=== PATIENT | male | born 1970 | race Caucasian/White ===

== ENCOUNTER → 2017-08-17 12:58 | Outpatient (CLI) | payer BC, SELFPAY ==
--- NOTE | 2017-08-17 13:02 | XR_ITS ---
XR shoulder RT min 2V HISTORY: ITS.REASON: right shoulder pain ORDERING PHYSICIAN: Percy Kwon MD PATIENT AGE: 46 years COMPARISON: FINDINGS: No fracture or dislocation. No lytic or blastic change. There is normal mineralization. The joint spaces are well-preserved. No significant degenerative/arthritic changes. No erosive changes evident. No subacromial stenosis IMPRESSION: Negative, no acute finding
--- NOTE | 2017-08-17 14:20 | XR_ITS ---
XR elbow RT 2V HISTORY: ITS.REASON: right elbow pain ORDERING PHYSICIAN: Percy Kwon MD PATIENT AGE: 46 years FINDINGS: BONY STRUCTURES: No fracture or dislocation. No lytic or blastic change. Normal mineralization. SOFT TISSUES: Unremarkable. No radio opaque foreign bodies. No displaced fat pad. JOINT SPACE: Well-preserved. No significant arthritic changes evident. IMPRESSION: Negative elbow.
== END ==
PROVIDERS: PCP Emergency Medicine; Visit Provider Orthopaedic Surgery
DX: M25.521 Pain in right elbow (principal)
CPT/HCPCS: 73030; 73070

== ENCOUNTER → 2017-08-28 15:48 | Outpatient (CLI) | payer BC, SELFPAY | PROVIDERS: Family Provider Family Medicine; PCP Emergency Medicine; Visit Provider Orthopaedic Surgery | DX: M77.11 Lateral epicondylitis, right elbow (principal); Z53.09 Procedure and treatment not carried out because of other contraindication ==

== ENCOUNTER → 2018-10-09 17:38 | Outpatient (CLI) | payer BC, SELFPAY ==
[2018-10-09 18:12] LABS: Basophils % 0.3 % (0.1-2.0); Eosinophils # 0.1 K/mm3 (0.0-0.4); Eosinophils % 1.5 % (0.1-12.0); Hematocrit 50.6 % (42.0-52.0); Hemoglobin 16.4 g/dL (14.1-18.0); Lymphocytes # 1.5 K/mm3 (0.7-4.5); Lymphocytes % 16.5 % (10-50); Mean Corpuscular HGB Conc 32.4 g/dL (31.8-35.4); Mean Corpuscular Volume 95.8 fl (80-94); Mean Platelet Volume 8.3 fl (7.4-10.4); Monocytes # 0.6 K/mm3 (0.1-1.0); Monocytes % 6.5 % (1.7-9.3); Neutrophils # 7.1 K/mm3 (1.8-7.8); Neutrophils % 75.2 % (37.0-80.0); Platelet Count 275 K/mm3 (142-424); Red Blood Count 5.29 M/mm3 (4.60-6.20); Red Cell Distribution Width 14.9 % (11.5-17.5); White Blood Count 9.4 K/mm3 (4.8-10.8)
[2018-10-09 18:44] LABS: Alanine Aminotransferase 153 U/L (12-78); Albumin Level 4.1 gm/dL (3.4-5.0); Albumin/Globulin Ratio 1.1 (1.1-1.8); Alkaline Phosphatase 135 U/L (46-116); Anion Gap 13.6 mEq/L (5-15); Aspartate Amino Transferase 75 U/L (15-37); Bilirubin,Total 0.6 mg/dL (0.2-1.0); Blood Urea Nitrogen 12 mg/dL (7-18); Calcium 8.9 mg/dL (8.5-10.1); Carbon Dioxide 29 mmol/L (21.0-32.0); Chloride 101 mmol/L (98-107); Creatinine,Serum 0.91 mg/dL (0.70-1.30); Erythrocyte Sedimentation Rate 5 mm/hr (0-15); Estimated Glomerular Filt Rate 90 ml/min (>60); GFR (African American) 109 ML/MIN (>60); Globulin 3.9 gm/dl (1.3-3.2); Glucose 84 mg/dL (74-106); Potassium 4.6 mmoL/L (3.5-5.1); Sodium 139 mmol/L (136-145); T4 (Thyroxine) 8.4 ug/dl (4.7-13.3); Thyroid Stimulating Hormone 2.35 uIU/ml (0.358-3.740)
[2018-10-12 07:12] LABS: Vitamin B12 485 pg/mL (232-1245)
[2018-10-14 18:08] LABS: Hep A Ab, IgM Negative (Negative); Hepatitis B Core Antibody IgM Positive (Negative); Hepatitis B Surface Antigen Negative (Negative)
[2018-10-17 07:08] LABS: Hepatitis C Antibody >11.0 s/co ratio (0.0-0.9)
== END ==
PROVIDERS: Visit Provider Emergency Medicine
DX: M25.561 Pain in right knee (principal); M25.562 Pain in left knee; R74.8 Abnormal levels of other serum enzymes
CPT/HCPCS: 80053; 80074; 82607; 84436; 84443; 85025; 85651

== ENCOUNTER → 2018-10-19 09:16 | Outpatient (CLI) | payer BC, SELFPAY | PROVIDERS: PCP Emergency Medicine; Visit Provider Emergency Medicine | DX: R51 Headache (principal) ==

== ENCOUNTER → 2018-11-01 15:00 | Outpatient (CLI) | payer BC, SELFPAY ==
--- NOTE | 2018-11-01 15:04 | MR_ITS ---
MR head/brain wo con HISTORY: ITS.REASON: headache ORDERING PHYSICIAN: Yoni Rojas MD PATIENT AGE: 47 years Comparison: 02/07/2017. TECHNIQUE: Standard multiplanar multiecho sequences are performed without contrast. FINDINGS: There are no areas of restricted diffusion. There is no mass, acute hemorrhage or extra-axial fluid collection. Ventricles, sulci, cortical areas and brain stem structures are normal. Periventricular white matter areas including the corpus callosum are normal. There are no areas of abnormal signal. Visualized vessels are patent and area of the foramen magnum is normal. The visualized optic pathway structures are normal. IMPRESSION: No acute process. Normal study.
--- NOTE | 2018-11-01 15:04 | MR_ITS ---
MR lumbar spine wo con HISTORY: ITS.REASON: Back pain ORDERING PHYSICIAN: Yoni Rojas MD PATIENT AGE: 47 years Comparison: 07/13/2016 and 08/02/2014. TECHNIQUE: Standard multiplanar multiecho sequences are performed without contrast. 3-D MIP and myelographic images are also rendered and reviewed FINDINGS: Alignment is normal. Vertebral body heights are normal. There are chronic type II subchondral osseous marrow signal changes at L4-5 and L5-S1. This is associated with moderate loss of disc space height at this levels. L1-2 and L2-3 levels are normal. L3-4 level shows a very mild left lateral bulge with tiny mild foraminal encroachment. There is no thecal sac deformity. L4-5 shows persistent mild bulge however today study shows associated central and right paracentral protrusion with subtle several millimeter caudal migration of the protruded fragment which is located just posterior to the posterior superior corner of L5 vertebral body. There is mild to moderate right ventral thecal sac deformity at this level. L5-S1 shows stable minimal bulge without mass effect. The descending S1 nerve root and thecal sac at this level are normal. Posterior elements are intact and appear normal. Nerve roots and foraminal areas are strand of by epidural fat in appear normal except moderate effacement of the epidural fat surrounding the exiting L5 nerve roots in the foraminal areas bilaterally at L5-S1. Comments and cauda equina structures are normal. Paraspinal areas are unremarkable. IMPRESSION: L4-5 chronic degenerative disc disease with bulge and now shows a central and right paracentral disc herniation of the protrusion type with several millimeter caudal migration of the fragment. L5-S1 stable chronic degenerative disc disease with minimal bulge without mass effect. L5-S1 moderate bilateral foraminal stenosis. L3-4 mild left lateral bulge without mass effect.
== END ==
PROVIDERS: PCP Emergency Medicine; Visit Provider Emergency Medicine
DX: M54.9 Dorsalgia, unspecified (principal); R51 Headache
CPT/HCPCS: 70551; 72148; 76376

== ENCOUNTER → 2020-02-21 17:14 | Outpatient (CLI) | payer BC, SELFPAY ==
[2020-02-21 18:06] LABS: Basophils % 0.2 % (0.1-2.0); Eosinophils # 0.1 K/mm3 (0.0-0.4); Eosinophils % 1.4 % (0.1-12.0); Hematocrit 47.6 % (42.0-52.0); Hemoglobin 16.6 g/dL (14.1-18.0); Lymphocytes # 1.5 K/mm3 (0.7-4.5); Lymphocytes % 19.8 % (10-50); Mean Corpuscular HGB Conc 34.9 g/dL (31.8-35.4); Mean Corpuscular Hemoglobin 31.1 pg (27.0-31.2); Mean Corpuscular Volume 89.1 fl (80-94); Mean Platelet Volume 9.7 fl (7.4-10.4); Monocytes # 0.4 K/mm3 (0.1-1.0); Monocytes % 5.2 % (1.7-9.3); Neutrophils # 5.5 K/mm3 (1.8-7.8); Neutrophils % 73.3 % (37.0-80.0); Platelet Count 232 K/mm3 (142-424); Red Blood Count 5.34 M/mm3 (4.60-6.20); Red Cell Distribution Width 14.4 % (11.5-17.5); White Blood Count 7.5 K/mm3 (4.8-10.8)
[2020-02-21 18:44] LABS: Alanine Aminotransferase 45 U/L (12-78); Albumin Level 4.5 g/dl (3.5-5.0); Albumin/Globulin Ratio 1.4 (1.1-1.8); Alkaline Phosphatase 105 U/L (38-126); Anion Gap 18.3 mEq/L (5-15); Aspartate Amino Transferase 42 U/L (17-59); Bilirubin,Total 0.7 mg/dl (0.2-1.3); Blood Urea Nitrogen 15 mg/dl (9-20); Calcium 9.3 mg/dl (8.4-10.2); Carbon Dioxide 23 mmol/L (22.0-30.0); Chloride 102 mmol/L (98-107); Chol/HDL Ratio 2.8 (1-3.5); Cholesterol 223 mg/dl (140-200); Estimated Glomerular Filt Rate 90 ml/min (>60); GFR (African American) 109 ML/MIN (>60); Globulin 3.2 g/dL (1.3-3.2); Glucose 110 mg/dl (74-100); HDL Cholesterol 80 mg/dl (40-60); Potassium 4.3 mmoL/L (3.5-5.1); Sodium 139 mmol/L (136-145); Total Protein,Serum 7.7 g/dl (6.3-8.2); Triglycerides 139 mg/dl (30-150); VLDL Cholesterol 28 mg/dL (0-40)
[2020-02-21 18:56] LABS: Direct LDL Cholesterol 103.11 mg/dL (100-129)
[2020-02-21 19:00] LABS: Free T4 (Free Thyroxine) 1.17 ng/dl (0.78-2.19)
[2020-02-21 19:02] LABS: 25-OH Vitamin D, Total 38.3 ng/mL (30-100)
[2020-02-25 13:10] LABS: HBV IU/mL HBV DNA not detected IU/mL (.)
== END ==
PROVIDERS: Visit Provider Emergency Medicine
DX: R53.83 Other fatigue (principal); E55.9 Vitamin D deficiency, unspecified; R74.8 Abnormal levels of other serum enzymes
CPT/HCPCS: 80053; 80061; 82306; 84439; 84443; 85025; 87517; 87522

== ENCOUNTER → 2020-03-03 14:06 | Outpatient (CLI) | payer BC, SELFPAY ==
--- NOTE | 2020-03-03 14:06 | MR_ITS ---
PROCEDURE: MR LUMBAR SPINE WO CON CLINICAL INDICATION: back pain LOW BACK PAIN, BILATERAL LEG WEAKNESS, NO INJURY. PRIOR 11-01-18 TECHNIQUE: Standard multiplanar multiecho sequences are performed without contrast. 3-D MIP and myelographic images are also rendered and reviewed FINDINGS: Spinal cord ends at the L1 level. There is normal alignment. T12-L1 and L1-L2 have an unremarkable appearance. L2-L3: Mild to moderate facet and ligamentum hypertrophy with mild bilateral foraminal narrowing. L3-L4: Facet ligamentum hypertrophy with mild bilateral foraminal narrowing not significantly changed. L4-5: Degenerative disc disease with bulging disc and a small broad-based central disc protrusion slightly eccentric toward the right. Previously there was a small right paracentral disc herniation at this level which is no longer apparent. There is moderate facet and ligamentum hypertrophy with mild bilateral foraminal narrowing and mild bilateral lateral recess narrowing. There are type 2 endplate changes at this level. L5-S1: Degenerative disc disease with mild bulging disc along with facet and ligamentum hypertrophy. There is moderate to severe bilateral foraminal narrowing which is not significantly changed. No extruded herniated disc. No bony canal stenosis. IMPRESSION: 1. Multilevel lumbar spondylosis. Please see above for detailed description at each level. No extruded herniated disc or bony canal stenosis. 2. L4-5: Degenerative disc disease with bulging disc and a small broad-based central disc protrusion slightly eccentric toward the right. Previously there was a small right paracentral disc herniation at this level which is no longer apparent. There is moderate facet and ligamentum hypertrophy with mild bilateral foraminal narrowing and mild bilateral lateral recess narrowing. There are type 2 endplate changes at this level. 3. L5-S1: Degenerative disc disease with mild bulging disc along with facet and ligamentum hypertrophy. There is moderate to severe bilateral foraminal narrowing which is not significantly changed Dictated by: Stefan Stapleton MD 03/06/2020 09:44 Stefan Stapleton MD in [place] 03/06/2020 09:44
== END ==
PROVIDERS: PCP Emergency Medicine; Visit Provider Emergency Medicine
DX: M54.5 Low back pain (principal)
CPT/HCPCS: 72148; 76376

== ENCOUNTER 2021-02-10 20:06 | Emergency (ER) | payer BC, SELFPAY ==
[2021-02-10 20:07] VITALS: BP 168/98; PULSE 88; RESP 16; TEMP 36.8; O2SAT 99; BMI 31.1
[2021-02-10 20:30] VITALS: BP 166/112; PULSE 92; O2SAT 97
--- NOTE | 2021-02-10 20:37 | HMH.EDGENADL ---
ED Disposition Clinical Impression: Liver function abnormality, Paresthesia Disposition: Home, Self-Care Condition on Discharge: Fair Additional Instructions: Follow-up with your primary care physician in approximately 1 to 2 weeks to have your liver functions checked again. Do this even if you feel well. Your liver functions today were elevated. The remainder of your work-up did not reveal any life-threatening or dangerous causes for your symptoms. Turn to the emergency department if you feel worse in any way. Avoid consuming alcohol for the next few weeks until you have your liver functions checked again. Referrals: Yoni Rojas MD [Primary Care Provider] - - Critical Care Critical Care Time: No Attestation: On 02/10/21, the high probability of a clinically significant, sudden or life threatening deterioration of the following system(s) required my full and direct attention, intervention and personal management. The time I documented below is in addition to time spent performing reported procedures but includes the following listed in this critical care notation. Medical Decision Making - Medical Records Medical records reviewed: Yes: I reviewed the patient's medical records. - Ras Inquiry Pt receiving controlled substance: No Vital Signs: 02/10/21 20:07 02/10/21 20:30 02/10/21 21:00 Temperature 98.2 F Temperature Source Oral Pulse Rate 92 H 78 Pulse Rate [Left] 88 Respiratory Rate 16 Blood Pressure 166/112 H 154/103 H Blood Pressure [Left Arm] 168/98 H Blood Pressure Mean [Left Arm] 121 Blood Pressure Source [Left Arm] Manual Cuff/ Auscultation 02 Sat by Pulse Oximetry 99 97 94 L Oxygen Delivery Method Room Air Room Air Room Air - Lab Data Lab results reviewed: Yes: I reviewed the patient's lab results. Lab Results 02/10/21 21:30: WBC 6.6, RBC 5.16, Hgb 17.4, Hct 49.7, MCV 96.3 H, MCH 33.8 H, MCHC 35.1, RDW 13.7, Plt Count 169, MPV 8.2, Neut % (Auto) 78.1, Lymph % (Auto) 14.4, [place] % (Auto) 5.6, Eos % (Auto) 1.3, Baso % (Auto) 0.6, Neut # (Auto) 5.2, Lymph # (Auto) 1.0, [place] # (Auto) 0.4, Eos # (Auto) 0.1, Baso # (Auto) 0.0 02/10/21 21:30: Sodium 141, Potassium 4.5, Chloride 100, Carbon Dioxide 30, Anion Gap 15.5 H, BUN 4 L, Creatinine 0.60 L, Estimated Creat Clear 222, Estimated GFR 144, Est GFR ( Amer) 174, Glucose 105 H, Calcium 9.3, Total Bilirubin 1.1, AST 703 H*, ALT 592 H*, Alkaline Phosphatase 210 H, Total Protein 8.0, Albumin 4.4, Globulin 3.6 H, Albumin/Globulin Ratio 1.2 02/10/21 21:41: Urine Color Yellow, Urine Appearance Clear, Urine pH 6.0, Ur Specific [place] 1.020, Urine Protein Negative, Urine Glucose (UA) Negative, Urine Ketones Negative, Urine Blood Negative, Urine Nitrate Negative, Urine Bilirubin Negative, Urine Urobilinogen 0.2, Ur Leukocyte Esterase Negative, Urine RBC None, Urine WBC None, Ur Squamous Epith Cells 5-10, Urine Bacteria None Result diagrams: 02/10/21 21:30 02/10/21 21:30 - ECG Data Tracing #1 I reviewed this ECG and interpreted as documented below: Patient is EKG was done at 2126. It shows a normal sinus rhythm with a rate of 80 bpm. There is no evidence of ischemia. The intervals are normal. There is no dysrhythmia. The axes were normal. This is a normal EKG. Normal Sinus Rhythm: Yes Medical Decision Narrative: The patient's work-up in the emergency department did not reveal any immediately life-threatening or dangerous causes for the patient's symptoms. There is no evidence for myocardial infarction and/or stroke. The patient's work-up revealed elevated liver functions. The patient does drink alcohol. This could be secondary to his alcohol consumption. I advised the patient that he needs to follow-up with his primary care physician in about a week or 2 to have his liver functions checked again even if he feels well. The patient has agreed to do so and has expressed understanding. I feel that the patient can be safe
[2021-02-10 21:00] VITALS: BP 154/103; PULSE 78; O2SAT 94
--- NOTE | 2021-02-10 21:26 | ECG_ITS ---
APPROVED REPORT Exam: Resting ECG HR:80 bpm ECG Measurements Heart Rate 80 AXES CA 176 P 23 QRSd 90 QRS 10 QT 380 T 27 QTc 438 Conclusion Normal sinus rhythm Normal ECG Electronically signed by : Willian Jose MD 02/12/2021 22:40:01
[2021-02-10 21:47] LABS: Basophils % 0.6 % (0.1-2.0); Chloride 100 mmol/L (98-107); Eosinophils # 0.1 K/mm3 (0.0-0.4); Eosinophils % 1.3 % (0.1-12.0); Hematocrit 49.7 % (42.0-52.0); Hemoglobin 17.4 g/dL (14.1-18.0); Lymphocytes % 14.4 % (10-50); Mean Corpuscular HGB Conc 35.1 g/dL (31.8-35.4); Mean Corpuscular Hemoglobin 33.8 pg (27.0-31.2); Mean Corpuscular Volume 96.3 fl (80-94); Mean Platelet Volume 8.2 fl (7.4-10.4); Monocytes # 0.4 K/mm3 (0.1-1.0); Monocytes % 5.6 % (1.7-9.3); Neutrophils # 5.2 K/mm3 (1.8-7.8); Neutrophils % 78.1 % (37.0-80.0); Platelet Count 169 K/mm3 (142-424); Red Blood Count 5.16 M/mm3 (4.60-6.20); Red Cell Distribution Width 13.7 % (11.5-17.5); White Blood Count 6.6 K/mm3 (4.8-10.8)
[2021-02-10 21:48] LABS: Potassium 4.5 mmoL/L (3.5-5.1); Sodium 141 mmol/L (136-145)
[2021-02-10 21:48] LABS: Microscopic, Urine URINE MICROSCOPIC (MICROSCOPIC)
[2021-02-10 21:50] LABS: Alanine Aminotransferase 592 U/L (12-78); Alkaline Phosphatase 210 U/L (38-126); Anion Gap 15.5 mEq/L (5-15); Bilirubin,Total 1.1 mg/dl (0.2-1.3); Blood Urea Nitrogen 4 mg/dl (9-20); Carbon Dioxide 30 mmol/L (22.0-30.0); Creatinine Clearance Estimated 222 mL/min (50-200); Estimated Glomerular Filt Rate 144 ml/min (>60); GFR (African American) 174 ML/MIN (>60)
[2021-02-10 21:51] LABS: Albumin Level 4.4 g/dl (3.5-5.0); Albumin/Globulin Ratio 1.2 (1.1-1.8); Calcium 9.3 mg/dl (8.4-10.2); Globulin 3.6 g/dL (1.3-3.2); Glucose 105 mg/dl (74-100)
[2021-02-10 21:56] LABS: Appearance,Urine CLEAR (Clear); Bilirubin,Urine Negative (Negative); Blood, Urine Negative (Negative); Color,Urine YELLOW (Yellow); Glucose,Urine (UA) Negative (Negative); Ketones,Urine Negative (Negative); Leukocyte Esterase,Urine Negative (Negative); Nitrate,Urine Negative (Negative); Protein,Urine Negative (Negative); Urobilinogen,Urine 0.2 EU/dl (0.2)
[2021-02-10 21:57] LABS: Aspartate Amino Transferase 703 U/L (17-59)
[2021-02-10 23:07] VITALS: BP 157/89; PULSE 87; RESP 19; TEMP 36.8; O2SAT 99
== END 2021-02-10 23:16 | disposition home or self-care (01) ==
PROVIDERS: Emergency Provider Emergency Medicine; PCP Emergency Medicine
DX: R20.2 Paresthesia of skin (principal); R42 Dizziness and giddiness; R94.5 Abnormal results of liver function studies; F10.10 Alcohol abuse, uncomplicated; F41.9 Anxiety disorder, unspecified; G43.709 Chronic migraine without aura, not intractable, without status migrainosus; Z87.891 Personal history of nicotine dependence
CPT/HCPCS: 80053; 81001; 85025; 93005; 99283

== ENCOUNTER → 2022-08-24 23:17 | Outpatient (CLI) | payer BC, SELFPAY ==
[2022-08-24 19:19] LABS: Basophils % 0.3 % (0.1-2.0); Eosinophils # 0.1 K/mm3 (0.0-0.4); Eosinophils % 1.2 % (0.1-12.0); Hematocrit 46.7 % (42.0-52.0); Lymphocytes # 1.1 K/mm3 (0.7-4.5); Lymphocytes % 11.8 % (10-50); Mean Corpuscular HGB Conc 34.3 g/dL (31.8-35.4); Mean Corpuscular Hemoglobin 31.7 pg (27.0-31.2); Mean Corpuscular Volume 92.5 fl (80-94); Mean Platelet Volume 9.7 fl (7.4-10.4); Monocytes # 0.3 K/mm3 (0.1-1.0); Monocytes % 3.6 % (1.7-9.3); Neutrophils # 7.5 K/mm3 (1.8-7.8); Neutrophils % 83.1 % (37.0-80.0); Platelet Count 112 K/mm3 (142-424); Red Blood Count 5.05 M/mm3 (4.60-6.20); Red Cell Distribution Width 14.3 % (11.5-17.5)
[2022-08-24 20:15] LABS: Alanine Aminotransferase 148 U/L (12-78); Albumin/Globulin Ratio 1.4 (1.1-1.8); Alkaline Phosphatase 136 U/L (38-126); Anion Gap 20.5 mEq/L (5-15); Aspartate Amino Transferase 157 U/L (17-59); Bilirubin,Total 1.5 mg/dl (0.2-1.3); Blood Urea Nitrogen 12 mg/dl (9-20); Calcium 9.1 mg/dl (8.4-10.2); Carbon Dioxide 25 mmol/L (22.0-30.0); Chloride 96 mmol/L (98-107); Estimated Glomerular Filt Rate 143 ml/min (>60); GFR (African American) 173 ML/MIN (>60); Globulin 3.6 g/dL (1.3-3.2); Glucose 106 mg/dl (74-100); Potassium 4.5 mmoL/L (3.5-5.1); Sodium 137 mmol/L (136-145); Total Protein,Serum 8.6 g/dl (6.3-8.2)
[2022-08-24 20:29] LABS: 25-OH Vitamin D, Total 31.3 ng/mL (30-100)
[2022-08-24 21:05] LABS: Vitamin B12 505 pg/mL (239-931)
[2022-08-26 11:12] LABS: HIV Screen 4th Generation wRfx Non Reactive (Non Reactive)
[2022-08-28 00:05] LABS: HCV Genotype Charge YES; Hepatitis C Genotype 1a (.)
[2022-08-31 09:22] LABS: Triiodothryronine (T3) Uptake 28 % (23.5-40.5)
[2022-08-31 09:37] LABS: Thyroid Stimulating Hormone 2.69 uIU/mL (0.465-4.68)
[2022-08-31 22:16] LABS: Free Thyroxine Index 1.9 ug/dL (5.93-13.13); T4 (Thyroxine) 6.8 ug/dl (5.53-11.0)
[2022-09-25 20:42] LABS: Hep A Ab, Total Negative; Hepatitis B Surface Antigen Negative
[2022-09-25 20:43] LABS: Hep B Core Ab, Total Positive; Hep B Surface Ab, Qual Reactive
[2022-09-25 20:44] LABS: Hepatitis C Antibody Reactive
[2022-09-25 20:45] LABS: Fibrosis Score 0.68
[2022-09-25 20:46] LABS: Alpha 2-Macroglobulins, Qn 295; Haptoglobin 27; Necroinflammat Activity Score 0.79
[2022-09-25 20:47] LABS: ALT (SGPT) P5P 134; Apolipoprotein A-1 215; Bilirubin, Total 0.8; GGT 190
== END ==
LOC: LAB.DROPOF 23:17
PROVIDERS: PCP Nurse Practitioner Family; Visit Provider Nurse Practitioner Family
DX: R53.83 Other fatigue (principal); R94.5 Abnormal results of liver function studies; E53.9 Vitamin B deficiency, unspecified; Z86.19 Personal history of other infectious and parasitic diseases; Z11.4 Encounter for screening for human immunodeficiency virus [HIV]
CPT/HCPCS: 80053; 81596; 82306; 82607; 84436; 84443; 84479; 85025; 86703; 86704; 86706; 86708; 87340; 87380; 87522; 87902; G0432

== ENCOUNTER → 2022-08-31 08:04 | Outpatient (CLI) | payer BC, SELFPAY ==
--- NOTE | 2022-08-31 08:04 | US_ITS ---
FINAL REPORT CLINICAL HISTORY: elevaged liver enzymes, history of hepatitis FINDINGS: US ABDOMINAL LIMITED Limited sonographic images of the abdomen were obtained. The pancreas is obscured. There is a coarsened hepatic echotexture, may represent cirrhosis. No hepatic mass is identified. There is a dilated portal vein measuring 17 mm. The common duct is normal measuring 3 mm. The gallbladder wall is borderline measuring 3 mm. The right kidney is unremarkable. Venous collaterals are seen in the anterior abdomen. The spleen is enlarged measuring 16.9 cm. 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 Reviewed, Interpreted and Dictated by Lenard Hunt III, MD Transcribed by Dee Sawyer Authenticated and . [facility]
== END ==
LOC: RAD 08:04
PROVIDERS: PCP Nurse Practitioner Family; Visit Provider Nurse Practitioner Family
DX: R74.8 Abnormal levels of other serum enzymes (principal)
CPT/HCPCS: 76705

== ENCOUNTER → 2022-12-13 11:50 | Outpatient (CLI) | payer BC, SELFPAY ==
[2022-12-13 12:31] LABS: INR 1.16 (0.9-1.1); Prothrombin Time 12.4 seconds (10.1-12.5)
[2022-12-13 12:52] LABS: Chloride 104 mmol/L (98-107); Potassium 4.5 mmoL/L (3.5-5.1); Sodium 140 mmol/L (136-145)
[2022-12-13 12:54] LABS: Blood Urea Nitrogen 12 mg/dl (9-20); Estimated Glomerular Filt Rate 102 ml/min (>60); GFR (African American) 124 ML/MIN (>60)
[2022-12-13 12:55] LABS: Alanine Aminotransferase 153 U/L (12-78); Albumin Level 4.1 g/dl (3.5-5.0); Albumin/Globulin Ratio 1.2 (1.1-1.8); Alkaline Phosphatase 184 U/L (38-126); Anion Gap 13.5 mEq/L (5-15); Aspartate Amino Transferase 171 U/L (17-59); Bilirubin,Total 1.1 mg/dl (0.2-1.3); Calcium 9.1 mg/dl (8.4-10.2); Carbon Dioxide 27 mmol/L (22.0-30.0); Globulin 3.5 g/dL (1.3-3.2); Glucose 108 mg/dl (74-100); Total Protein,Serum 7.6 g/dl (6.3-8.2)
[2022-12-14 08:19] LABS: AFP, Tumor Marker 6.5 ng/mL (0.0-6.9)
[2022-12-14 12:45] LABS: Hep Be Ag Negative (Negative); Hepatitis B Surf Ab Quant 686.7 mIU/mL (Immunity>9.9)
[2022-12-14 13:10] LABS: Hepatitis Be Antibody Positive (Negative)
[2022-12-14 22:20] LABS: HBV IU/mL HBV DNA not detected IU/mL (.)
[2022-12-16 08:09] LABS: Hepatitis B Surface Antigen Negative
== END ==
LOC: LAB 11:51
PROVIDERS: PCP Emergency Medicine; Visit Provider Physician Assistant
DX: R76.8 Other specified abnormal immunological findings in serum (principal); Z11.4 Encounter for screening for human immunodeficiency virus [HIV]; B19.10 Unspecified viral hepatitis B without hepatic coma; R79.1 Abnormal coagulation profile; Z79.899 Other long term (current) drug therapy; Z01.84 Encounter for antibody response examination
CPT/HCPCS: 36415; 80053; 82105; 85610; 86706; 86707; 87340; 87350; 87517; 87522

== ENCOUNTER 2023-02-09 07:51 | Day surgery (SDC) | payer BC, SELFPAY ==
[2023-02-07 09:47] VITALS: BMI 27.8
[2023-02-09] VITALS (10 sets, daily range): BP systolic 131–206; BP diastolic 71–119; PULSE 71–101; RESP 16–23; TEMP 36.4–37.2; O2SAT 92–98
[2023-02-09 08:08] LABS: Microscopic, Urine URINE MICROSCOPIC (MICROSCOPIC)
[2023-02-09 08:49] LABS: Basophils % 0.4 % (0.1-2.0); Eosinophils # 0.3 K/mm3 (0.0-0.4); Eosinophils % 4.2 % (0.1-12.0); Hematocrit 48.4 % (42.0-52.0); Hemoglobin 17.2 g/dL (14.1-18.0); Lymphocytes # 1.4 K/mm3 (0.7-4.5); Lymphocytes % 23.5 % (10-50); Mean Corpuscular HGB Conc 35.6 g/dL (31.8-35.4); Mean Corpuscular Hemoglobin 34.3 pg (27.0-31.2); Mean Corpuscular Volume 96.6 fl (80-94); Mean Platelet Volume 8.6 fl (7.4-10.4); Monocytes # 0.3 K/mm3 (0.1-1.0); Monocytes % 5.5 % (1.7-9.3); Neutrophils # 3.9 K/mm3 (1.8-7.8); Neutrophils % 66.5 % (37.0-80.0); Platelet Count 80 K/mm3 (142-424); Red Blood Count 5.01 M/mm3 (4.60-6.20); Red Cell Distribution Width 14.5 % (11.5-17.5); White Blood Count 5.9 K/mm3 (4.8-10.8)
[2023-02-09 08:57] LABS: INR 1.11 (0.9-1.1); Prothrombin Time 11.9 seconds (10.1-12.5)
[2023-02-09 09:45] LABS: Alanine Aminotransferase 244 U/L (12-78); Albumin Level 4.7 g/dl (3.5-5.0); Albumin/Globulin Ratio 1.3 (1.1-1.8); Alkaline Phosphatase 166 U/L (38-126); Anion Gap 13.6 mEq/L (5-15); Aspartate Amino Transferase 254 U/L (17-59); Blood Urea Nitrogen 10 mg/dl (9-20); Calcium 9.3 mg/dl (8.4-10.2); Carbon Dioxide 31 mmol/L (22.0-30.0); Chloride 102 mmol/L (98-107); Creatinine Clearance Estimated 145 mL/min (50-200); Estimated Glomerular Filt Rate 102 ml/min (>60); GFR (African American) 124 ML/MIN (>60); Globulin 3.6 g/dL (1.3-3.2); Glucose 119 mg/dl (74-100); Potassium 4.6 mmoL/L (3.5-5.1); Sodium 142 mmol/L (136-145); Total Protein,Serum 8.3 g/dl (6.3-8.2)
[2023-02-09 10:10] LABS: Appearance,Urine CLEAR (Clear); Bilirubin,Urine Negative (Negative); Blood, Urine Negative (Negative); Color,Urine YELLOW (Yellow); Glucose,Urine (UA) Negative (Negative); Ketones,Urine Negative (Negative); Leukocyte Esterase,Urine Negative (Negative); Nitrate,Urine Negative (Negative); PH,Urine 6.5 (5.0-8.5); Protein,Urine Negative (Negative)
--- NOTE | 2023-02-09 10:39 | P.PNANES_ITS ---
[facility] Disclaimer: The information contained in this section may have been updated after the patient was seen, as this information can be updated by other users. Medical History (Updated 02/09/23 @ 09:57 by Jessie Ortiz RN) No significant past medical history Surgical History History of colonoscopy Family History Other No significant family history Social History Smoking Status: Former smoker tobacco type: cigarettes packs per day: 1 alcohol intake: current substance use type: former substance user, marijuana and heroin counseling given: No current occupational status: unemployed Travel in the last 8 weeks: None household members: family housing: house [facility] Anesthesia Checklist Patient Identification Patient Identification: Arm Band Structural Data Admitted From: Home Planned Operative Procedure/s: Right Open Inguinal Hernia Repair Consent for Planned Operative Procedure(s) Verified: Yes Verified Documents: Surgical Consent and History and Physical NPO Status Verified Time NPO: 00:00 Additional verifications Anesthesia Reactions: No Hx Blood Transfusions: No Blood Transfusion Reaction: No Airway Assessment Mallampati Score:: Class I C-Spine Mobility Assessed: Yes TMJ Mobility Assessed: Yes Dentition: Good Dentition Neurological Assessment Level of Consciousness: Awake and Alert Anesthesia Plan Anesthesia Risk discussed: Yes Anesthesia Plan: Verified ASA Class: II Anesthesia Type: General
[2023-02-09 11:16] LABS: Bacteria,Urine Trace /lpf; WBC,Urine Occasional #/hpf (0-3)
--- NOTE | 2023-02-09 14:20 | EXP.OP.NOTE ---
Date of procedure: 02/09/23 Pre-op Diagnosis:: Right inguinal hernia Post-op Diagnosis:: Same Procedure performed:: Open right inguinal hernia repair Surgeon:: Homer Damon MD Anesthesia: GETJerry Estimated blood loss (mL): 15 Operative findings:: Indirect defect Significant soft tissue stranding/tissue thickening throughout inguinal canal Operative note:: After informed consent was obtained the patient was taken to the operating room and placed in the supine position. General anesthesia was induced and his lower abdomen/groin/scrotum was prepped and draped in a sterile fashion. After infiltration with local anesthetic an oblique right groin incision was made. The deep subcutaneous tissue was dissected through Linnette's fascia to the level of the external aponeurosis with electrocautery. The external aponeurosis was sharply opened to the level of the external ring. The contents of the canal were carefully elevated. Fairly severe soft tissue thickening/fat stranding noted. A thin-walled hernia sac was dissected free from surrounding tissue. No obvious injuries to the vas deferens or vessels noted. The hernia sac was transected at its mid point to facilitate dissection. Once freed from surrounding tissue the distal portion was essentially excised and the proximal portion was closed with running Vicryl suture. An extra-large PerFix plug was placed in position and secured with interrupted Ethibond. The PerFix overlay was then secured to the shelving edge inferiorly and fascial margin superiorly with interrupted Ethibond. The external aponeurosis was reapproximated with running Vicryl suture. Linnette's fascia was closed in the same manner. Skin was then closed with the INSORB stapler. Dressings were applied and the patient was transferred to recovery in stable condition. Condition: stable Disposition: PACU Specimens:: none Complications:: No immediate
--- NOTE | 2023-02-09 14:42 | P.PNANES_ITS ---
[facility] Anesthesia Record Part I Anesthesia Record I Intake, IV Amount: 1,200 Hydration: Adequate Estimated blood loss (mL): 10 Urine output (mL): 0 Blood Pressure: 142/71 SaO2: 94 Pulse Rate: 87 Airway Patency: Patent Respiratory Rate: 20 Temperature: 98.9 F Patient is:: Drowsy and Stable Stable to PACU at:: 14:28
--- NOTE | 2023-02-09 14:42 | SUR.OPER ---
urinary catheter removed at 1417 pm by marilu with no issues. piedra had about 800ml of urine that was dark yellow noted
[2023-02-09 14:49] LABS: Microscopic,Cath URINE MICROSCOPIC (MICROSCOPIC)
[2023-02-09 15:00] LABS: Appearance,Urine/Cath CLEAR (Clear); Blood, Urine/Cath Negative (Negative); Color,Urine/Cath YELLOW (Yellow); Glucose,Urine/Cath (UA) Negative (Negative); Ketones,Urine/Cath Negative (Negative); Leukocyte Esterase,Cath Negative (Negative); Nitrate,Cath Negative (Negative); Protein,Urine/Cath Negative (Negative)
[2023-02-09 15:04] LABS: Bilirubin,Cath 1+ (Negative)
[2023-02-10 09:34] VITALS: BP 206/76; PULSE 93; RESP 16; TEMP 37.2; O2SAT 92
--- NOTE | 2023-02-10 09:34 | P.PNANES_ITS ---
[facility] Anesthesia Record Part II Anesthesia Record Part II Discharge Time: 15:06 Destination: Surgical Day Care (OP Surgery) PACU nurse assessment reviewed?: Yes Patient Condition:: Good Anesthesia Complications:: None Swallowing reflex intact?: Yes Airway Patency: Patent Cyanosis?: No Blood Pressure: 206/76 SaO2: 92 Respiratory Rate: 16 Pulse Rate: 93 Temperature: 98.9 F Mental Status: Alert & Oriented Pain level:: 6 Nausea and/or vomitting:: None Intake, IV Amount: 0 Hydration: Adequate
== END 2023-02-09 15:45 | disposition home or self-care (01) ==
PROVIDERS: PCP Emergency Medicine; Visit Provider Surgery
PROC: (CPT 49505; principal; 2023-02-09 09:30)
DX: K40.90 Unilateral inguinal hernia, without obstruction or gangrene, not specified as recurrent (principal)
CPT/HCPCS: 49505; 36415; 80053; 81001; 85025; 85610; 96374; J2405

== ENCOUNTER 2023-08-17 14:59 | Emergency (ER) | payer BC, SELFPAY ==
--- NOTE | 2023-08-17 15:03 | EXP.UTC ---
Discharge Plan Disposition Patient Disposition: Home, Self-Care Condition: Good Prescriptions Prescriptions: No Action hydrocodone-acetaminophen 5-325 mg tablet 1 tab PO Q6H PRN (Reason: post-op pain) Qty: 13 0RF Referrals Follow up/Referrals: Provider,Referral, MD [Primary Care Provider] - See instructions Activity Restrictions/Add. Instructions Additional Instructions/Restrictions: Drink plenty of fluids. Take tylenol or ibuprofen for pain or fever. Follow up with your regular doctor. GO TO THE ER FOR ANY WORSENING SYMPTOMS Clinical Impressions Clinical Impression: Acute viral syndrome Stand Alone Forms Stand Alone Forms: Work/School Release Instructions Patient Instructions: DI for Viral Syndrome Discharge ED Provider: Channing Valverde [facility] HPI General Stated complaint: Chills, weakness Time Seen by Provider: 08/17/23 15:03 History of Present Illness Provider Complaint: He states that he has had body aches, sinus congestion and chills for the past 4 days. He states that he has felt better since yesterday but he came in to be checked. He needs a work excuse. He denies cough, shortness of breath and significant chest congestion. Related Data Previous Rx's Medication Instructions Recorded hydrocodone 5 mg-acetaminophen 325 1 tab PO Q6H PRN post-op pain #13 02/09/23 mg tablet tabs Allergies Allergy/AdvReac Type Severity Reaction Status Date / Time codeine [CODEINE] Allergy Unknown I-HIVES Verified 02/09/23 09:57 [facility] Disclaimer: The information contained in this section may have been updated after the patient was seen, as this information can be updated by other users. Medical History (Updated 08/17/23 @ 15:30 by Channing Valverde APRN) No significant past medical history Surgical History History of colonoscopy Family History Other No significant family history Social History Smoking Status: Former smoker tobacco type: cigarettes packs per day: 1 alcohol intake: current alcohol intake frequency: a few times a week substance use type: former substance user, marijuana and heroin counseling given: No current occupational status: unemployed Travel in the last 8 weeks: None household members: family housing: house ROS Obtained: Yes All systems reviewed & no additional complaints except as documented Constitutional Constitutional: Reports chills and Reports fever(s) Eyes Eyes: Denies eye discharge ENT Ears, Nose, Mouth, and Throat: Reports as per HPI Cardiovascular Cardiovascular: Denies chest pain Respiratory Respiratory: Denies chest congestion and Reports cough Gastrointestinal Gastrointestingal: Reports nausea; Denies abdominal pain, constipation, cramping, diarrhea or vomiting Musculoskeletal Musculoskeletal: Denies arthralgias Integumentary/Breasts Skin/Breast: Denies rash Neurologic Neurologic: Denies paresthesias Physical Exam General General appearance: alert and in no apparent distress Head Head exam: atraumatic, normocephalic and normal inspection Eye Eye exam: Present normal appearance, PERRL and EOMI ENT ENT exam: Present normal exam, normal oropharynx, mucous membranes moist, TM's normal bilaterally and normal external ear exam Neck Neck exam: Present normal inspection, full ROM and trachea midline; Absent meningismus or lymphadenopathy Chest Chest inspection: Present normal inspection and symmetric chest wall rise; Absent tenderness Respiratory Respiratory exam: Present normal lung sounds bilaterally; Absent respiratory distress Cardiovascular Cardiovascular exam: Present regular rate and normal rhythm; Absent JVD Abdominal Exam Abdominal exam: Present soft and normal bowel sounds; Absent distention, tenderness or guarding Extremities Exam Extremities exam: Present normal inspection, full ROM and normal capillary refill; Absent calf tenderness Back Exam Back exam: Present normal inspection; Absent tenderness Neurological Exam Neurological exam: Present alert and oriented X3 Psychiatric Psychiatric exam: Present normal affect and normal mood Skin Skin exam: Present warm, dry, intact and normal color Lymphatic Lymphatic Findings: no adenopathy Medical Decision Making Medical Records Medical records reviewed: No I reviewed the patient's medical records. Ras Inquiry Pt receiving controlled substance: No
[2023-08-17 15:05] VITALS: BP 150/98; PULSE 69; RESP 20; TEMP 36.8; O2SAT 98; BMI 27.3
[2023-08-17 15:33] VITALS: BP 150/98; PULSE 69; RESP 20; TEMP 36.8; O2SAT 98
== END 2023-08-17 15:36 | disposition home or self-care (01) ==
PROVIDERS: Emergency Provider Nurse Practitioner Family
DX: B34.9 Viral infection, unspecified (principal)
CPT/HCPCS: 99211; 99212; G0463

== ENCOUNTER 2023-12-19 14:46 | Emergency (ER) | payer BC, SELFPAY ==
[2023-12-19 15:00] VITALS: BP 152/81; PULSE 74; RESP 19; TEMP 36.9; O2SAT 99; BMI 25.6
--- NOTE | 2023-12-19 15:17 | EXP.UTC ---
Discharge Plan Disposition Patient Disposition: Home, Self-Care Condition: Good Referrals Follow up/Referrals: Provider,Referral, MD [Primary Care Provider] - See instructions Activity Restrictions/Add. Instructions Additional Instructions/Restrictions: Continue to drink fluids to stay hydrated Follow up with Family Doctor if needed Clinical Impressions Clinical Impression: Encounter to obtain excuse from work Stand Alone Forms Stand Alone Forms: Work/School Release Instructions Patient Instructions: Nausea and Vomiting-Adult Print Language Print Language: [place] Discharge ED Provider: Regla Frausto [facility] [place] General Stated complaint: past stomach virus Mode of Arrival: Ambulatory Source of Information: Patient Limitations: No Limitations Time Seen by Provider: 12/19/23 15:17 Description of Symptoms (Recalled from Triage Doc. by RN): PATIENT STATES HE HAD A STOMACH VIRUS LAST WEEK. HE IS FEELING BETTER TODAY AND NEEDS A WORK EXCUSE HEENT Symptoms (Recalled from RN notes): No Resp Symptoms (Recalled from RN notes): No Skin Symptoms (Recalled from RN notes): No MS Symptoms (Recalled from RN notes): No Functional Status (Recalled from RN notes): WNL History of Present Illness Provider Complaint: Patient states that he had a stomach bug all last week and wasnt able to work States he is feeling better now but work wanted him to come get a note States he wasnt seen because he knew it was a stomach bug but didnt know they wanted him to get one or he would have come in Related Data Allergies Allergy/AdvReac Type Severity Reaction Status Date / Time codeine [CODEINE] Allergy Unknown I-HIVES Verified 02/09/23 09:57 Worker's Comp Is this a Worker's Comp case?: No [facility] Disclaimer: The information contained in this section may have been updated after the patient was seen, as this information can be updated by other users. Medical History (Updated 12/19/23 @ 15:21 by Regla Frausto APRN) No significant past medical history Surgical History History of colonoscopy Family History Other No significant family history Social History Smoking Status: Former smoker tobacco type: cigarettes packs per day: 1 alcohol intake: current alcohol intake frequency: a few times a week substance use type: former substance user, marijuana and heroin counseling given: No current occupational status: unemployed Travel in the last 8 weeks: None household members: family housing: house ROS Obtained: Yes All systems reviewed & no additional complaints except as documented and Yes Systems reviewed as appropriate & no additional complaints except as documented Constitutional Constitutional: Reports system reviewed and no additional complaints, except as documented and Reports as per HPI Eyes Eyes: Reports system reviewed and no additional complaints, except as documented and Reports as per HPI ENT Ears, Nose, Mouth, and Throat: Reports system reviewed and no additional complaints, except as documented and Reports as per HPI Cardiovascular Cardiovascular: Reports system reviewed and no additional complaints, except as documented and Reports as per HPI Respiratory Respiratory: Reports system reviewed and no additional complaints, except as documented and Reports as per HPI Gastrointestinal Gastrointestingal: Reports system reviewed and no additional complaints, except as documented and as per HPI Physical Exam General General appearance: alert and in no apparent distress ENT ENT exam: Present mucous membranes moist Respiratory Respiratory exam: Present normal lung sounds bilaterally; Absent respiratory distress or wheezes Cardiovascular Cardiovascular exam: Present regular rate, normal rhythm and normal heart sounds Abdominal Exam Abdominal exam: Present soft and normal bowel sounds; Absent distention, tenderness, guarding or rebound Neurological Exam Neurological exam: Present alert, oriented X3 and normal gait Medical Decision Making Ras Inquiry Pt receiving controlled substance: No Ras was queried for this patient: No Vital Signs: 12/19/23 15:00 Temperature 98.4 F Temperature Source Oral Pulse Rate [Left Brachial] 74 Respiratory Rate 19 Blood Pressure [Left Arm] 152/81 H Blood Pressure Mean [Left Arm] 104 Blood Pressure Source [Left Arm] Automatic Cuff Blood Pressure Position [Left Arm] Sitting 02 Sat by Pulse Oximetry 99 Oxygen Delivery Method Room Air
[2023-12-19 15:25] VITALS: BP 152/81; PULSE 74; RESP 19; TEMP 36.9; O2SAT 99
== END 2023-12-19 15:27 | disposition home or self-care (01) ==
PROVIDERS: Emergency Provider Nurse Practitioner
DX: Z02.89 Encounter for other administrative examinations (principal)
CPT/HCPCS: 99211; 99212; G0463

== ENCOUNTER 2024-12-15 22:21 | Emergency (ER) | payer BC, SELFPAY ==
[2024-12-15 22:29] VITALS: BP 149/80; PULSE 87; RESP 16; TEMP 36.8; O2SAT 100; BMI 27.0
--- NOTE | 2024-12-15 22:31 | ED_ITS ---
Discharge Plan Disposition Patient Disposition: Home, Self-Care Prescriptions Prescriptions: New ketorolac 10 mg tablet 10 mg PO Q8H PRN (Reason: pain) 1 Days Qty: 20 0RF doxycycline hyclate 100 mg capsule 100 mg PO BID 6 Days Qty: 12 0RF No Action diclofenac sodium [Solaraze] 3 % gel 1 applic topical BID Qty: 100 2RF Referrals Follow up/Referrals: Steve Man DO [Primary Care Provider, Family Practice] - See instructions Activity Restrictions/Add. Instructions Additional Instructions/Restrictions: Follow-up with orthopedics as scheduled on the . Take the antibiotics as prescribed. Take Tylenol and toradol for pain. Do not take the toradol in addtion to naproxen or other NSAIDS. Clinical Impressions Clinical Impression: Cellulitis Stand Alone Forms Stand Alone Forms: Work/School Release Print Language Print Language: Amharic Discharge ED Provider: Charmaine Gutierrez General Adult HPI <Charmaine Gutierrez DO - Last Filed: 12/16/24 00:18> General Chief complaint: PAIN Stated complaint: middle toe on right foot painful and swollen Time Seen by Provider: 12/15/24 22:31 History of Present Illness HPI narrative: 54-year-old with a history of right internal presents emergency department with acute pain since Monday. Patient states that he was seen by [facility] orthopedics and has follow-up on the . Patient has planning to have surgery on the for removal of the toe. Patient states that since Monday he has been off of his foot but has had worsening pain in the toe. Patient has not had any fevers or other infectious symptoms. Patient states that it is painful to wear his steel toed shoes. Patient states that he is concerned with his pain and his ability to work. Patient does not have a history of gout. Patient has had no new trauma to the foot. Related Data Previous Rx's ?Medication ?Instructions ?Recorded diclofenac sodium 3 % topical gel 1 applic topical BID #100 grams 12/06/24 (Solaraze) doxycycline hyclate 100 mg capsule 100 mg PO BID 6 day s #12 caps 12/16/24 ketorolac 10 mg tablet 10 mg PO Q8H PRN pain 1 day #20 12/16/24 tabs Allergies Allergy/AdvReac Type Severity Reaction Status Date / Time codeine (CODEINE) Allergy Unknown I-HIVES Verified 12/15/24 22:36 [facility] <Charmaine Gutierrez DO - Last Filed: 12/16/24 00:18> [facility] Disclaimer: The information contained in this section may have been updated after the patient was seen, as this information can be updated by other users. Medical History (Updated 12/16/24 @ 00:07 by Charmaine Gutierrez DO) No significant past medical history Surgical History History of colonoscopy Family History (Updated 12/06/24 @ 08:32 by Rafia Velasco MA) Other Diabetes Hypertension No significant family history Social History (Updated 12/06/24 @ 08:33 by Rafia Velasco MA) Smoking Status: Current every day smoker tobacco type: cigarettes packs per day: 1 alcohol intake: current alcohol intake frequency: a few times a week substance use type: former substance user, marijuana and heroin counseling given: No current occupational status: employed Travel in the last 8 weeks?: None household members: family housing: house marital status: Have you lived/traveled outside US in past 30 days?: No Contact w/someone who lives/traveled outside US past 30 days?: No Exposure to someone with infectious disease in past 14 days?: No Do you have a fever (greater than 100.4 F or 38 C)?: No Have you tested positive for COVID-19?: No Exposed to someone with COVID-19 in past 14 days?: No Do you have a sore throat?: No Do you have a cough?: No Do you have any weakness?: No Do you have any diarrhea?: No Are you experiencing any unusual bleeding?: No Do you have any muscle aches/pain?: No Do you have any abdominal pain?: No Are you experiencing loss of taste or smell?: No Other Medical History Have you received the Flu Vaccine for this season: No Have you received the Pneumonia Vaccine: No <Charmaine Gutierrez DO - Last Filed: 12/16/24 00:18> ROS Obtained: Yes All systems reviewed & no additional complaints except as documented and Yes Systems reviewed as appropriate & no additional complaints except as documented Physical Exam <Charmaine Gutierrez DO - Last Filed: 12/16/24 00:18> General General appearance: alert and in no apparent distress Head Head exam: atraumatic, normocephalic and normal inspection Eye Eye exam: Present normal appearance, PERRL and EOMI; Absent scleral icterus ENT ENT exam: Present normal exam and normal external ear exam Neck Neck exam: Present normal inspection and full ROM Chest Chest inspection: Present normal inspection and symmetric chest wall rise Respiratory Respiratory exam: Present normal lung sounds bilaterally; Absent respiratory distress or wheezes Cardiovascular Cardiovascular exam: Present regular rate, normal rhythm, normal heart sounds and other (2+ DP pulse right foot) Abdominal Exam Abdominal exam: Present soft and distention; Absent tenderness, guarding or rebound Extremities Exam Extremities exam: Present normal inspection, full ROM and other (R third toe with erythema to the distal aspect, mild swelling, FROM of toe) Back Exam Back exam: Present normal inspection and full ROM Neurological Exam Neurological exam: Present alert, oriented X3 and other (sensation intact R foot) Psychiatric Psychiatric exam: Present normal affect and normal mood Skin Skin exam: Present warm and dry Medical Decision Making <Charmaine Gutierrez, DO - Last Filed: 12/16/24 00:18> Medical Records Medical records reviewed: Yes I reviewed the patient's medical records. Screening: Per USPSTF and CDC recommendations, given the prevalence of disease in our region, it is our hospital?s policy to screen for HIV and viral Hepatitis for all patients aged 18 and over and those with ongoing risk factors. Ras Inquiry Pt receiving controlled substance: No Vital Signs: 12/15/24 22:29 12/15/24 23:26 12/15/24 23:30 Temperature 98.3 F Temperature Source Oral Pulse Rate 83 88 Pulse Rate [Left] 87 Respiratory Rate 16 Blood Pressure Blood Pressure [Right Arm] 149/80 H Blood Pressure Mean Blood Pressure Mean [Right Arm] 103 Blood Pressure Source Blood Pressure Source [Right Arm] Automatic Cuff Blood Pressure Position Blood Pressure Position [Right Arm] Sitting 02 Sat by Pulse Oximetry 100 98 100 Oxygen Delivery Method Room Air 12/16/24 00:26 12/16/24 00:35 12/16/24 00:35 Temperature Temperature Source Pulse Rate 89 84 Pulse Rate [Left] Respiratory Rate Blood Pressure 126/59 L Blood Pressure [Right Arm] Blood Pressure Mean 62 Blood Pressure Mean [Right Arm] Blood Pressure Source Blood Pressure Source [Right Arm] Blood Pressure Position Blood Pressure Position [Right Arm] 02 Sat by Pulse Oximetry 99 100 Oxygen Delivery Method 12/16/24 00:45 12/16/24 01:00 12/16/24 01:00 Temperature Temperature Source Pulse Rate 79 87 Pulse Rate [Left] Respiratory Rate Blood Pressure 137/75 Blood Pressure [Right Arm] Blood Pressure Mean 85 Blood Pressure Mean [Right Arm] Blood Pressure Source Blood Pressure Source [Right Arm] Blood Pressure Position Blood Pressure Position [Right Arm] 02 Sat by Pulse Oximetry 98 98 Oxygen Delivery Method 12/16/24 01:08 Temperature 98.3 F Temperature Source Pulse Rate 87 Pulse Rate [Left] Respiratory Rate 16 Blood Pressure 137/75 Blood Pressure [Right Arm] Blood Pressure Mean Blood Pressure Mean [Right Arm] Blood Pressure Source Automatic Cuff Blood Pressure Source [Right Arm] Blood Pressure Position Sitting Blood Pressure Position [Right Arm] 02 Sat by Pulse Oximetry Oxygen Delivery Method Room Air Lab Data Lab results reviewed: Yes I reviewed the patient's lab results. Lab Results 12/15/24 23:05: WBC 3.3 L, RBC 3.09 L, Hgb 7.2 L, Hct 23.9 L, MCV 77.3 L, MCH 23.3 L, MCHC 30.1 L, RDW 16.1, Plt Count 82 L, MPV 10.6 H, Neut % (Auto) 72.1, Lymph % (Auto) 12.6, Storey % (Auto) 8.9, Eos % (Auto) 5.5, Baso % (Auto) 0.3, Neut # (Auto) 2.4, Lymph # (Auto) 0.4 L, Storey # (Auto) 0.3, Eos # (Auto) 0.2, Baso # (Auto) 0.0, Total Counted 100, Neutrophils % (Manual) 82 H, Lymphocytes % (Manual) 12, Monocytes % (Manual) 6, Platelet Estimate Moderate decrease, ESR 22 H, Sodium 138, Potassium 3.8, Chloride 104, Carbon Dioxide 25, Anion Gap 12.8, BUN 9, Creatinine 0.80, Estimated Creat Clear 142, Estimated GFR 102, Est GFR ( Amer) 123, Glucose 105 H, Calcium 8.3 L, Total Bilirubin 0.8, AST 50, ALT 37, Alkaline Phosphatase 91, C-Reactive Protein 1.2, Total Protein 7.3, Albumin 4.1, Globulin 3.2, Albumin/Globulin Ratio 1.3, HCV Ab KATY w/Rflx PCR Qn Reactive, HIV Ag/Ab Combo Qual Negative 12/15/24 23:05 12/15/24 23:05 Orders (Tests/Meds): ED MEDICATIONS Discontinued Medications Generic Name Dose Route Start Last Admin Trade Name John PRN Reason Stop Dose Admin Dexamethasone 10 mg 12/16/24 00:15 12/16/24 00:35 Dexamethasone 4mg Tablet PO 12/16/24 00:16 10 mg ONCE ONE Administration Doxycycline Hyclate 100 mg 12/16/24 00:57 12/16/24 01:02 Doxycycline Hycl 100 Mg Tablet PO 12/16/24 00:58 100 mg ONCE ONE Administration Iopamidol 120 ml 12/16/24 00:26 12/16/24 00:27 Iopamidol-370 (76%);100ml Bottle IV 12/16/24 00:27 120 ml ONCE ONE Administration Ketorolac Tromethamine 30 mg 12/16/24 00:02 12/16/24 00:07 Ketorolac 30mg/Ml Vial IM 12/16/24 00:03 30 mg ONCE ONE Administration Oxycodone HCl 5 mg 12/15/24 22:44 12/15/24 22:56 Oxycodone 5mg Immediate Release Tablet PO 12/15/24 22:45 Not Given ONCE ONE Sodium Chloride 40 ml 12/16/24 00:26 12/16/24 00:27 0.9 % Sodium Chloride 50 Ml Vial IV 12/16/24 00:27 40 ml ONCE ONE Administration Sodium Chloride 10 ml 12/16/24 00:26 12/16/24 00:27 Sodium Chloride 0.9% 10ml Syr (Rad Only) IV 01/15/25 00:25 10 ml NEEDED PRN Administration Maintain IV Site ORDERS Category Date Time Status CT foot RT w con Stat Cat Scan 12/15/24 23:58 Completed Foot XR right minimum 3 views [XR foot RT min 3V] Stat Exams 12/15/24 22:44 Completed CBC w/Auto Diff [Complete Blood Count Auto Diff] Stat Lab 12/15/24 23:05 Completed CMP [Comprehensive Metabolic Panel] Stat Lab 12/15/24 23:05 Completed CRP [C-Reactive Protein] Stat Lab 12/15/24 23:05 Completed ESR [Erythrocyte Sedimentation Rate] Stat Lab 12/15/24 23:05 Completed HCV RNA PCR, Quant Stat Lab 12/15/24 23:05 Received HIV Combo Stat Lab 12/15/24 23:05 Completed Hepatitis C Ab Qual. W/ RFX Stat Lab 12/15/24 23:05 Completed Medical Decision Narrative: Patient is an otherwise healthy gentleman who presents to the emergency department with concern for acute pain with some mild redness. On arrival, patient was hemodynamically stable with unremarkable signs. Differential includes but not limited to: Gout, arthritis, osteomyelitis, overuse injury, amongst others. Labs were reviewed and interpreted by myself: CBC showed no leukocytosis, hemoglobin is stable. CMP was unremarkable. ESR mildly elevated at 22. CRP unremarkable. Patient was given a dose of Toradol in the emergency department as well as dexamethasone. X-ray of the right concerning for periosteal reaction, therefore CT scan of the right was obtained. Patient signed out to the oncoming provider pending CT scan and disposition. <Mack Carpenter MD - Last Filed: 12/16/24 01:34> Vital Signs: 12/15/24 22:29 12/15/24 23:26 12/15/24 23:30 Temperature 98.3 F Temperature Source Oral Pulse Rate 83 88 Pulse Rate [Left] 87 Respiratory Rate 16 Blood Pressure Blood Pressure [Right Arm] 149/80 H Blood Pressure Mean Blood Pressure Mean [Right Arm] 103 Blood Pressure Source Blood Pressure Source [Right Arm] Automatic Cuff Blood Pressure Position Blood Pressure Position [Right Arm] Sitting 02 Sat by Pulse Oximetry 100 98 100 Oxygen Delivery Method Room Air 12/16/24 00:26 12/16/24 00:35 12/16/24 00:35 Temperature Temperature Source Pulse Rate 89 84 Pulse Rate [Left] Respiratory Rate Blood Pressure 126/59 L Blood Pressure [Right Arm] Blood Pressure Mean 62 Blood Pressure Mean [Right Arm] Blood Pressure Source Blood Pressure Source [Right Arm] Blood Pressure Position Blood Pressure Position [Right Arm] 02 Sat by Pulse Oximetry 99 100 Oxygen Delivery Method 12/16/24 00:45 12/16/24 01:00 12/16/24 01:00 Temperature Temperature Source Pulse Rate 79 87 Pulse Rate [Left] Respiratory Rate Blood Pressure 137/75 Blood Pressure [Right Arm] Blood Pressure Mean 85 Blood Pressure Mean [Right Arm] Blood Pressure Source Blood Pressure Source [Right Arm] Blood Pressure Position Blood Pressure Position [Right Arm] 02 Sat by Pulse Oximetry 98 98 Oxygen Delivery Method 12/16/24 01:08 Temperature 98.3 F Temperature Source Pulse Rate 87 Pulse Rate [Left] Respiratory Rate 16 Blood Pressure 137/75 Blood Pressure [Right Arm] Blood Pressure Mean Blood Pressure Mean [Right Arm] Blood Pressure Source Automatic Cuff Blood Pressure Source [Right Arm] Blood Pressure Position Sitting Blood Pressure Position [Right Arm] 02 Sat by Pulse Oximetry Oxygen Delivery Method Room Air Lab Data Lab Results 12/15/24 23:05: WBC 3.3 L, RBC 3.09 L, Hgb 7.2 L, Hct 23.9 L, MCV 77.3 L, MCH 23.3 L, MCHC 30.1 L, RDW 16.1, Plt Count 82 L, MPV 10.6 H, Neut % (Auto) 72.1, Lymph % (Auto) 12.6, Storey % (Auto) 8.9, Eos % (Auto) 5.5, Baso % (Auto) 0.3, Neut # (Auto) 2.4, Lymph # (Auto) 0.4 L, Storey # (Auto) 0.3, Eos # (Auto) 0.2, Baso # (Auto) 0.0, Total Counted 100, Neutrophils % (Manual) 82 H, Lymphocytes % (Manual) 12, Monocytes % (Manual) 6, Platelet Estimate Moderate decrease, ESR 22 H, Sodium 138, Potassium 3.8, Chloride 104, Carbon Dioxide 25, Anion Gap 12.8, BUN 9, Creatinine 0.80, Estimated Creat Clear 142, Estimated GFR 102, Est GFR ( Amer) 123, Glucose 105 H, Calcium 8.3 L, Total Bilirubin 0.8, AST 50, ALT 37, Alkaline Phosphatase 91, C-Reactive Protein 1.2, Total Protein 7.3, Albumin 4.1, Globulin 3.2, Albumin/Globulin Ratio 1.3, HCV Ab KATY w/Rflx PCR Qn Reactive, HIV Ag/Ab Combo Qual Negative Orders (Tests/Meds): ED MEDICATIONS Discontinued Medications Generic Name Dose Route Start Last Admin Trade Name Freq PRN Reason Stop Dose Admin Dexamethasone 10 mg 12/16/24 00:15 12/16/24 00:35 Dexamethasone 4mg Tablet PO 12/16/24 00:16 10 mg ONCE ONE Administration Doxycycline Hyclate 100 mg 12/16/24 00:57 12/16/24 01:02 Doxycycline Hycl 100 Mg Tablet PO 12/16/24 00:58 100 mg ONCE ONE Administration Iopamidol 120 ml 12/16/24 00:26 12/16/24 00:27 Iopamidol-370 (76%);100ml Bottle IV 12/16/24 00:27 120 ml ONCE ONE Administration Ketorolac Tromethamine 30 mg 12/16/24 00:02 12/16/24 00:07 Ketorolac 30mg/Ml Vial IM 12/16/24 00:03 30 mg ONCE ONE Administration Oxycodone HCl 5 mg 12/15/24 22:44 12/15/24 22:56 Oxycodone 5mg Immediate Release Tablet PO 12/15/24 22:45 Not Given ONCE ONE Sodium Chloride 40 ml 12/16/24 00:26 12/16/24 00:27 0.9 % Sodium Chloride 50 Ml Vial IV 12/16/24 00:27 40 ml ONCE ONE Administration Sodium Chloride 10 ml 12/16/24 00:26 12/16/24 00:27 Sodium Chloride 0.9% 10ml Syr (Rad Only) IV 01/15/25 00:25 10 ml NEEDED PRN Administration Maintain IV Site ORDERS Category Date Time Status CT foot RT w con Stat Cat Scan 12/15/24 23:58 Completed Foot XR right minimum 3 views [XR foot RT min 3V] Stat Exams 12/15/24 22:44 Completed CBC w/Auto Diff [Complete Blood Count Auto Diff] Stat Lab 12/15/24 23:05 Completed CMP [Comprehensive Metabolic Panel] Stat Lab 12/15/24 23:05 Completed CRP [C-Reactive Protein] Stat Lab 12/15/24 23:05 Completed ESR [Erythrocyte Sedimentation Rate] Stat Lab 12/15/24 23:05 Completed HCV RNA PCR, Quant Stat Lab 12/15/24 23:05 Received HIV Combo Stat Lab 12/15/24 23:05 Completed Hepatitis C Ab Qual. W/ RFX Stat Lab 12/15/24 23:05 Completed Medical Decision Narrative: Patient is an otherwise healthy gentleman who presents to the emergency department with concern for acute pain with some mild redness. On arrival, patient was hemodynamically stable with unremarkable signs. Differential includes but not limited to: Gout, arthritis, osteomyelitis, overuse injury, amongst others. Labs were reviewed and interpreted by myself: CBC showed no leukocytosis, hemoglobin is stable. CMP was unremarkable. ESR mildly elevated at 22. CRP unremarkable. Patient was given a dose of Toradol in the emergency department as well as dexamethasone. X-ray of the right concerning for periosteal reaction, therefore CT scan of the right foot was obtained. Patient signed out to the oncoming provider pending CT scan and disposition. Jayden HUSSEIN: I assumed care of the patient at the time of handoff from the prior provider. On reassessment, CT imaging is independently interpreted, no evidence of osteo. Patient was discharged after a dose of doxycycline and with a prescription for doxycycline given possible developing cellulitis. Return precautions given. Critical Care <Charmaine Gutierrez, DO - Last Filed: 12/16/24 00:18> Critical Care Time Critical Care Time: No
--- OUTSIDE RECORDS SUMMARY | 2024-12-15 22:39 | XMS_ITS | Clinical Summary ---
Author Organization [facility] Address [address] [place] [address] Care Team Providers Care County Auditor Name Role Phone Willian Holcomb MD Primary Care Provider + Allergies No known active allergies Medications naproxen sodium (ALEVE) 220 MG tablet Take 220 mg by mouth 2 (Two) Times a Day As Needed for Mild Pain (1-3). Active Active Problems Problem Noted Date Diagnosed Date Chronic midline low back pain without sciatica 0 10/10/2016 Social History Tobacco Use Types Packs/Day Years Used Date Smoking Tobacco: Every Day Alcohol Use Standard Drinks/Week Comments Yes 0 (1 standard drink = 0.6 oz pur e alcohol) Abuse Screen Answer Date Recorded Unsafe at Home or Work/School Not on file Feels Threatened by Someone? Not on file 02/2023 Does Anyone Keep You from Co ntacting Others or Doint Things Outside the Home? Not on file 01/18/2023 Physical Sign of Abuse Present Not on file 1 Housing Stability Answer Date Recorded Current Living Arrangements Not on file 01/08 Potentially Unsafe Housing Conditions Not on boone e 01/18/2023 Family and Community Support Answer Marin e Recorded Help with Day-to-Day Activities Not on file 01/18/2023 Lonely or Isolated Not on file 01/18/2023 Employment Answer Date Recorded Do you want help finding or keeping work or a freya b? Not on file 01/18/2023 Disabilities Answer Date Recorded Concentrating, Remembering, or Making Decisions Difficulty Not on file 01/18/2023 Doing Errands Independently Difficulty Not on fi le 01/18/2023 Education Answer Date Recorded Help with school or training? Not on file Preferred Language Not on file 01/18/2023 Sex and Gender Information Value Date Recorded Sex Assigned at Not on file Legal Sex Male 10:04 AM EDT Gender Identity Not on file Sexual Orientation Not on file Last Filed Vital Signs Vital Sign Reading Time Taken Comments Blood Pressure 122/70 10/10/2016 11:15 AM EDT Pulse - - Temperature 35.8 C (96.4 F) 10/10/2016 11:15 AM EDT Respiratory Rate - - Oxygen Saturation - - Inhaled Oxygen Concentration - - Weight 92.1 kg (203 lb) 10/10/2016 11:15 AM EDT Height 182.9 cm (6') 10/10/2016 11:15 AM EDT Body Mass Index 27.53 10/10/2016 11:15 AM EDT Plan of Treatment Health Maintenance Due Date Last Done Comments TDAP/TD VACCINES (1 - Tdap) 11/18/1991 ANNUAL PHYSICAL 10/07/2016 HEPATITIS C SCREENING 10/07/2016 COLOGUARD 2017 COLON CANCER SCREENING 5 YEAR SIGMOIDOSCOPY 2017 COLONOSCOPY [address] CANCER SCREENING [address] COLONOGRAPHY 2017 FECAL OCCULT BLOOD TEST 2017 FIT Testing (1 year) 2017 Pneumococcal Vaccine 50+ (1 of 1 - PCV) 2022 ZOSTER VACCINE (1 of 2) 2022 COVID-19 Vaccine (1 - season) 2024 INFLUENZA VACCINE 01/08/2025 Insurance [facility] [employer] PPO Care Teams County Auditor Relationship Specialty Start Date End Date Willian Holcomb MD PCP - General Family Medicine 10/03/16
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
--- NOTE | 2024-12-15 22:44 | XR_ITS ---
PROCEDURE INFORMATION: Exam: XR Right Foot Exam date and time: 12/15/2024 11:03 PM Age: 54 years old Clinical indication: Pain; Toes; Right; Additional info: Tenderness 3rd toe TECHNIQUE: Imaging protocol: Radiologic exam of the right foot. Views: 3 or more views. COMPARISON: No relevant prior studies available. FINDINGS: Bones/joints: Diffuse degenerative change of the visualized osseous structures. Questionable wispy periosteal type appearance of the distal osseous structures of the 3rd digit without visualized fracture deformity. Soft tissues: Linear densities noted in the lateral soft tissues of the great toe. IMPRESSION: Nonspecific possible periosteal reaction of the distal osseous structures of the 3rd digit without visualized fracture deformity. Differentials include infection. Consider CT in the emergent setting for further assessment as these findings could be artifactual given positioning of the toe. Linear density in the soft tissues of the great toe laterally. Correlate with penetrating trauma.
[2024-12-15 23:17] LABS: Hematocrit 23.9 % (42.0-52.0); Hemoglobin 7.2 g/dL (14.1-18.0); Immature Granulocytes % 0.6 %; Mean Corpuscular HGB Conc 30.1 g/dL (31.8-35.4); Mean Corpuscular Hemoglobin 23.3 pg (27.0-31.2); Mean Corpuscular Volume 77.3 fl (80-94); Nucleated Red Blood Cells % 0 %; Platelet Count 82 K/mm3 (142-424); Red Blood Count 3.09 M/mm3 (4.60-6.20); Red Cell Distribution Width-SD 44.9 fL; White Blood Count 3.3 K/mm3 (4.8-10.8)
[2024-12-15 23:24] LABS: Alanine Aminotransferase 37 U/L (12-78); Albumin Level 4.1 g/dl (3.5-5.0); Albumin/Globulin Ratio 1.3 (1.1-1.8); Alkaline Phosphatase 91 U/L (38-126); Anion Gap 12.8 mEq/L (5-15); Aspartate Amino Transferase 50 U/L (17-59); Bilirubin,Total 0.8 mg/dl (0.2-1.3); Blood Urea Nitrogen 9 mg/dl (9-20); Calcium 8.3 mg/dl (8.4-10.2); Carbon Dioxide 25 mmol/L (22.0-30.0); Chloride 104 mmol/L (98-107); Creatinine Clearance Estimated 142 mL/min (50-200); Creatinine,Serum 0.80 mg/dl (0.66-1.25); Estimated Glomerular Filt Rate 102 ml/min (>60); GFR (African American) 123 ML/MIN (>60); Globulin 3.2 g/dL (1.3-3.2); Glucose 105 mg/dl (74-100); Potassium 3.8 mmoL/L (3.5-5.1); Sodium 138 mmol/L (136-145); Total Protein,Serum 7.3 g/dl (6.3-8.2)
[2024-12-15 23:26] VITALS: PULSE 83; O2SAT 98
[2024-12-15 23:30] VITALS: PULSE 88; O2SAT 100
[2024-12-15 23:30] LABS: C-Reactive Protein 1.2 mg/L (0-4)
[2024-12-15 23:42] LABS: Total Cells Counted 100
--- NOTE | 2024-12-15 23:58 | CT_ITS ---
PROCEDURE INFORMATION: Exam: CT Right Lower Extremity With Contrast, Foot Exam date and time: 12/16/2024 12:05 AM Age: 54 years old Clinical indication: Abnormal findings; Abnormal imaging study; Periosteal rxn on XR; Additional info: ? Infection, third toe, periosteal rxn on XR TECHNIQUE: Imaging protocol: CT of the right lower extremity with intravenous contrast was performed. Exam focused on the foot. Radiation optimization: All CT scans at this facility use at least one of these dose optimization techniques: automated exposure control; mA and/or kV adjustment per patient size (includes targeted exams where dose is matched to clinical indication); or iterative reconstruction. Contrast material: ISOVUE; Contrast volume: 120 ml; Contrast route: IV; COMPARISON: CR XR FOOT RT MIN 3V 12/15/2024 11:03 PM FINDINGS: Bones/joints: Diffuse degenerative change of the visualized osseous structures. Old posttraumatic change of the medial malleolus. No aggressive cortical erosion to suspect osteomyelitis at this time. Soft tissues: Diffuse predominantly forefoot soft tissue reticulation and dorsal soft tissue swelling. Swelling about the medial and lateral soft tissues of the ankle joint. No rim enhancing fluid collection is seen. IMPRESSION: 1. Soft tissue changes which can be seen in cellulitis. No focal fluid collection. Correlate clinically. 2. No aggressive osseous findings to suggest osteomyelitis at this time.
[2024-12-16] MEDS: KETOROLAC 30MG/ML VIAL 30 MG IM (00:07)
[2024-12-16 00:14] LABS: Hepatitis C Ab Qual. W/ RFX REACTIVE (Negative)
[2024-12-16 00:26] VITALS: PULSE 89; O2SAT 99
[2024-12-16] MEDS: IOPAMIDOL-370 (76%);100ML BOTTLE 120 ML IV (00:27)
[2024-12-16] MEDS: 0.9 % SODIUM CHLORIDE 50 ML VIAL 40 ML IV (00:27)
[2024-12-16] MEDS: SODIUM CHLORIDE 0.9% 10ML SYR (RAD ONLY) 10 ML IV (00:27)
[2024-12-16 00:35] VITALS: BP 126/59; PULSE 84; O2SAT 100
[2024-12-16] MEDS: DEXAMETHASONE 4MG TABLET 10 MG PO (00:35)
[2024-12-16 00:45] VITALS: PULSE 79; O2SAT 98
[2024-12-16 01:00] VITALS: BP 137/75; PULSE 87; O2SAT 98
[2024-12-16] MEDS: DOXYCYCLINE HYCL 100 MG TABLET PO (01:02)
[2024-12-16 01:08] VITALS: BP 137/75; PULSE 87; RESP 16; TEMP 36.8; O2SAT 98
== END 2024-12-16 01:09 | disposition home or self-care (01) ==
PROVIDERS: Emergency Provider Student in an Organized Health Care Education/Training Program; PCP Internal Medicine
DX: L03.115 Cellulitis of right lower limb (principal); F17.210 Nicotine dependence, cigarettes, uncomplicated
CPT/HCPCS: 73630; 73701; 80053; 85007; 85025; 85027; 85651; 86140; 86803; 87389; 87522; 96374; 99284; 99285; J1885; J8540; Q9967

== ENCOUNTER 2024-12-25 15:11 | Outpatient (CLI) | payer BC, SELFPAY ==
[2024-12-25 17:25] LABS: Hematocrit 25.2 % (42.0-52.0); Hemoglobin 7.4 g/dL (14.1-18.0); Immature Granulocytes % 0.3 %; Mean Corpuscular HGB Conc 29.4 g/dL (31.8-35.4); Mean Corpuscular Hemoglobin 22.2 pg (27.0-31.2); Mean Corpuscular Volume 75.7 fl (80-94); Nucleated Red Blood Cells % 0 %; Platelet Count 105 K/mm3 (142-424); Red Blood Count 3.33 M/mm3 (4.60-6.20); Red Cell Distribution Width-SD 42.5 fL; White Blood Count 2.9 K/mm3 (4.8-10.8)
[2024-12-25 17:55] LABS: RBC Morphology Normal
[2024-12-25 18:34] LABS: Vitamin B12 690 pg/mL (239-931)
[2024-12-25 18:53] LABS: Folate > 20.00 ng/mL
[2024-12-25 19:01] LABS: Iron 115 ug/dL (49-181)
[2024-12-25 19:11] LABS: Total Iron Binding Capacity 457 ug/dL (261-462)
[2024-12-25 19:38] LABS: Ferritin 5.00 ng/ml (17.9-464)
--- OUTSIDE RECORDS SUMMARY | 2024-12-26 10:42 | XMS_ITS | Clinical Summary ---
Author Organization [facility] Address [address] [place] [address] Care Team Providers Care Diamond Merchant Name Role Phone Willian Holcomb MD Primary [...] - season) 2024 INFLUENZA VACCINE 01/08/2025 Insurance [facility] PPO Care Teams Diamond Merchant Relationship Specialty Start Date End Date Willian Holcomb MD PCP - General Family Medicine 10/03/16
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
== END 2024-12-25 23:59 ==
LOC: LAB.DROPOF 12-26 10:40
PROVIDERS: PCP Internal Medicine; Visit Provider Internal Medicine
DX: Z00.00 Encounter for general adult medical examination without abnormal findings (principal); D61.818 Other pancytopenia
CPT/HCPCS: 82607; 82728; 82746; 83540; 83550; 85007; 85025

== ENCOUNTER 2025-01-30 11:48 | Outpatient (CLI) | payer BC, SELFPAY ==
[2025-01-30 12:23] LABS: Hematocrit 30.5 % (42.0-52.0); Hemoglobin 8.8 g/dL (14.1-18.0); Immature Granulocytes % 0 %; Mean Corpuscular HGB Conc 28.9 g/dL (31.8-35.4); Mean Corpuscular Hemoglobin 22.2 pg (27.0-31.2); Mean Corpuscular Volume 77.0 fl (80-94); Nucleated Red Blood Cells % 0 %; Platelet Count 63 K/mm3 (142-424); Red Blood Count 3.96 M/mm3 (4.60-6.20); Red Cell Distribution Width-SD 47.7 fL; White Blood Count 2.0 K/mm3 (4.8-10.8)
[2025-01-30 13:08] LABS: Iron 42 ug/dL (49-181)
[2025-01-30 13:17] LABS: Total Iron Binding Capacity 485 ug/dL (261-462)
[2025-01-30 13:25] LABS: Total Cells Counted 100
[2025-01-30 13:27] LABS: Hypochromasia 1+
[2025-01-30 13:45] LABS: Ferritin 11.4 ng/ml (17.9-464)
== END 2025-01-30 23:59 | disposition home or self-care (01) ==
LOC: LAB 11:49
PROVIDERS: PCP Internal Medicine; Visit Provider Internal Medicine Medical Oncology
DX: B18.2 Chronic viral hepatitis C (principal); K74.69 Other cirrhosis of liver; D61.818 Other pancytopenia
CPT/HCPCS: 36415; 82728; 83540; 83550; 85007; 85025

== ENCOUNTER 2025-02-20 13:30 | Outpatient (CLI) | payer BC, SELFPAY ==
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
--- OUTSIDE RECORDS SUMMARY | 2025-02-20 13:37 | XMS_ITS | Clinical Summary ---
Author Organization [facility] Address [address] [place] [address] Care Team Providers Care Web Services Architect Name Role Phone Willian Holcomb MD Primary [...] 2022 ZOSTER VACCINE (1 of 2) 2022 INFLUENZA VACCINE 11/08/2024 Insurance [facility] PPO Care Teams Web Services Architect Relationship Specialty Start Date End Date Willian Holcomb MD PCP - General Family Medicine 10/03/16
[2025-02-20 13:48] VITALS: BP 148/77; PULSE 76; RESP 18; TEMP 36.8; O2SAT 97
[2025-02-20] MEDS: ferumoxytoL 510 MG in 0.9 % SODIUM CHLORIDE 50 ML 268 MG IV (13:48)
[2025-02-20] MEDS: SODIUM CHLORIDE 0.9% 10ML FLUSH SYRINGE 10 ML IV (13:50)
[2025-02-20 14:07] VITALS: BP 123/86; PULSE 68; RESP 16; O2SAT 97
== END 2025-02-20 23:59 | disposition home or self-care (01) ==
LOC: INF 13:31
PROVIDERS: PCP Internal Medicine; Visit Provider Internal Medicine Medical Oncology
DX: D50.9 Iron deficiency anemia, unspecified (principal)
CPT/HCPCS: 96374; Q0138

== ENCOUNTER 2025-02-25 13:00 | Outpatient (CLI) | payer BC, SELFPAY ==
[2025-02-25] MEDS: ferumoxytoL 510 MG in 0.9 % SODIUM CHLORIDE 50 ML 268 MG IV (13:11)
[2025-02-25 13:15] VITALS: BP 131/68; PULSE 73
[2025-02-25] MEDS: SODIUM CHLORIDE 0.9% 10ML FLUSH SYRINGE 10 ML IV (13:30)
[2025-02-25 13:35] VITALS: BP 134/72; PULSE 78
--- OUTSIDE RECORDS SUMMARY | 2025-02-25 16:46 | XMS_ITS | Clinical Summary ---
Author Organization [facility] Address [address] [place] [address] Care Team Providers Care Sewer Pipe Layer Helper Name Role Phone Willian Holcomb MD Primary [...] of 2) 2022 INFLUENZA VACCINE 11/08/2024 Insurance [facility] PPO Care Teams Sewer Pipe Layer Helper Relationship Specialty Start Date End Date Willian Holcomb MD PCP - General Family Medicine 10/03/16
== END 2025-02-25 23:59 | disposition home or self-care (01) ==
LOC: INF 13:01
PROVIDERS: PCP Internal Medicine; Visit Provider Internal Medicine Medical Oncology
DX: D50.9 Iron deficiency anemia, unspecified (principal)
CPT/HCPCS: 96374; Q0138